=== PATIENT | female | born 1950 | race Hispanic/Latino ===

== ENCOUNTER 2018-02-12 07:05 | Observation (INO) | payer OTHER, MEDICARE ==
[~2018-02-12] VITALS: Ht 149.9 cm; Wt 93.9 kg
[2018-02-12] MEDS ORDERED: FUROSEMIDE 10 MG/ML 2ML VIAL ONE (07:37)
[2018-02-12 07:47] LABS: BASOPHILS % (AUTO) 0.7 % (0.0-5.0); EOSINOPHILS % (AUTO) 2.1 % (0.0-8.0); HEMATOCRIT 31.3 % (36-48); LYMPHOCYTES % (AUTO) 17.4 % (21.0-51.0); MEAN CORPUSCULAR HEMOGLOBIN 30.8 pg (27.0-33.0); MEAN CORPUSCULAR HGB CONC 33.9 g/dL (32.0-36.0); MEAN CORPUSCULAR VOLUME 90.9 fL (79-99); MONOCYTES % (AUTO) 4.6 % (3.0-13.0); NEUTROPHILS % (AUTO) 75.2 % (40.0-77.0); NUCLEATED RED BLOOD CELLS 0.1 % (0.0-0.19); PLATELET COUNT (AUTO) 280 K/uL (130-400); RED BLOOD CELL COUNT(AUTO) 3.44 MIL/uL (4.00-5.50); RED CELL DISTRIBUTION WIDTH 13.3 % (11.0-15.5); WHITE BLOOD COUNT (AUTO) 9.3 K/uL (4.8-10.8)
[2018-02-12 07:52] LABS: CREATININE 1.9 mg/dL (0.5-1.5); POTASSIUM 4.7 mmol/L (3.5-5.1)
[2018-02-12 07:57] LABS: ALBUMIN 2.9 g/dL (3.5-5.0); BILIRUBIN,TOTAL 0.7 mg/dL (0.2-1.0); INR 0.99 (0.85-1.15); PROTHROMBIN TIME 10.4 SEC (9.6-11.6); TOTAL PROTEIN, SERUM 7.3 g/dL (6.0-8.3)
[2018-02-12 09:19] LABS: APPEARANCE,URINE Clear (CLEAR); BILIRUBIN,URINE Negative (NEGATIVE); COLOR,URINE Yellow (YELLOW); GLUCOSE, URINE (UA) TRACE mg/dL (NEGATIVE); KETONES,URINE Negative (NEGATIVE); LEUKOCYTE ESTERASE ,URINE Negative (NEGATIVE); NITRATE,URINE Negative (NEGATIVE); OCCULT BLOOD,URINE Trace (NEGATIVE); PROTEIN,URINE 300 (NEGATIVE); UROBILINOGEN,URINE 0.2 mg/dL (0.2-1.0)
[2018-02-12 09:37] LABS: BACTERIA,URINE Rare /HPF (None Seen); RBC,URINE 0-1 /HPF (0-1); SQUAMOUS EPITHELIAL CELL,UR Rare /HPF (0-2); WBC,URINE None Seen /HPF (0-1)
[2018-02-12] MEDS ORDERED: SODIUM CHLORIDE 0.9% 10 ML VIAL IVP SCH (10:30)
[2018-02-12] MEDS ORDERED: ONDANSETRON HCL 4 MG/2 ML VIAL IVP PRN (10:30)
[2018-02-12] MEDS ORDERED: POTASSIUM CHLORIDE 20 MEQ ERTAB PO PRN (10:30)
[2018-02-12] MEDS ORDERED: POTASSIUM CHLORIDE 10% ELIXIR 20 MEQ/15 ML UDCUP PO PRN (10:30)
[2018-02-12] MEDS ORDERED: MAG HYDROX/AL HYDROX/SIMETH ES 30 ML SUSP UDCUP PO PRN (10:30)
[2018-02-12] MEDS ORDERED: DIPHENHYDRAMINE HCL 25 MG CAPSULE PO PRN (10:30)
[2018-02-12] MEDS ORDERED: LIDOCAINE HCL-MPF 1% 2ML VIAL IJ PRN (10:30)
[2018-02-12] MEDS ORDERED: DEXTROSE 50%-WATER 50 ML DISP.SYRIN IV PRN (10:30)
[2018-02-12] MEDS ORDERED: NITROGLYCERIN 0.4 MG SL TAB SL PRN (10:30)
[2018-02-12] MEDS ORDERED: POTASSIUM CHLORIDE 20MEQ/100ML 100 ML IV PRN (10:30)
[2018-02-12] MEDS ORDERED: GLUCAGON 1MG KIT 1 MG ML IM PRN (10:30)
[2018-02-12] MEDS ORDERED: ACETAMINOPHEN 325 MG TAB PO PRN (10:30)
[2018-02-12 10:38] LABS: THYROID STIMULATING HORMONE 3.16 uIU/mL (0.36-3.74)
[2018-02-12 10:50] VITALS: BP 175/65
[2018-02-12] MEDS ORDERED: PRAV10TA39 PO (11:25)
[2018-02-12] MEDS ORDERED: ASPI-1181 PO (11:25)
[2018-02-12] MEDS ORDERED: AMLO10TA6 PO (11:25)
[2018-02-12] MEDS ORDERED: LOSA25TA16 PO (11:25)
[2018-02-12] MEDS ORDERED: INSLAN SQ ×2 (11:25→16:24)
[2018-02-12] MEDS ORDERED: CARV12.580 PO (11:25)
[2018-02-12] MEDS ORDERED: DOXA2TAB2 PO (11:25)
[2018-02-12] MEDS: INSULIN R PO SSI SQ SCH ×3 (11:30→21:00)
[2018-02-12 11:36] LABS: % IRON SATURATION 15.5 % (22-44)
[2018-02-12 12:25] VITALS: BP 134/64
[2018-02-12 13:40] LABS: CREATINE KINASE, TOTAL 85 U/L (21-232); MYOGLOBIN 84 ng/mL (10-92); TROPONIN I < 0.04 ng/mL (0.00-0.06)
[2018-02-12 16:54] VITALS: BP 151/66
[2018-02-12 19:53] VITALS: BP 161/66
[2018-02-12 20:10] LABS: CREATINE KINASE, TOTAL 74 U/L (21-232); MYOGLOBIN 111 ng/mL (10-92); TROPONIN I < 0.04 ng/mL (0.00-0.06)
[2018-02-12] MEDS ORDERED: **HM**(Pravastatin Sodium 10 MG PO SCH (21:00)
[2018-02-12] MEDS: FUROSEMIDE 10 MG/ML 2ML VIAL IVP SCH (21:36)
[2018-02-12] MEDS: FAMOTIDINE 20MG TAB 20 MG TAB PO SCH (21:36)
[2018-02-12] MEDS: CARVEDILOL 12.5 MG TABLET PO SCH (21:37)
[2018-02-12 23:37] VITALS: BP 142/54
[2018-02-13 04:00] VITALS: BP 144/72
[2018-02-13 04:24] LABS: HEMATOCRIT 28.9 % (36-48); MEAN CORPUSCULAR HEMOGLOBIN 29.7 pg (27.0-33.0); MEAN CORPUSCULAR HGB CONC 32.9 g/dL (32.0-36.0); MEAN CORPUSCULAR VOLUME 90.2 fL (79-99); PLATELET COUNT (AUTO) 244 K/uL (130-400); RED CELL DISTRIBUTION WIDTH 13.6 % (11.0-15.5)
[2018-02-13 04:39] LABS: CREATININE 2.1 mg/dL (0.5-1.5); POTASSIUM 4.4 mmol/L (3.5-5.1)
[2018-02-13] MEDS: INSULIN R PO SSI SQ SCH ×2 (05:48→11:30)
[2018-02-13 07:51] VITALS: BP 150/58
[2018-02-13 08:23] VITALS: BP 150/58
[2018-02-13] MEDS: FAMOTIDINE 20MG TAB 20 MG TAB PO SCH (08:23)
[2018-02-13] MEDS: CARVEDILOL 12.5 MG TABLET PO SCH (08:23)
[2018-02-13] MEDS: FUROSEMIDE 10 MG/ML 2ML VIAL IVP SCH (08:24)
[2018-02-13] MEDS ORDERED: ENOXAPARIN SODIUM 40 MG/0.4 ML SYRINGE SQ SCH (09:00)
[2018-02-13] MEDS ORDERED: LOSARTAN 50 MG TABLET PO SCH (09:00)
[2018-02-13] MEDS ORDERED: AMLODIPINE BESYLATE 5 MG TAB PO SCH (09:00)
[2018-02-13] MEDS ORDERED: ASPIRIN 81 MG EC TAB PO SCH (09:00)
[2018-02-13] MEDS ORDERED: FURO20TA6 PO (11:30)
[2018-02-13] MEDS ORDERED: HYDR-4154 PO (11:30)
[2018-02-13] MEDS ORDERED: ISOS60TA4 PO (11:30)
== END 2018-02-13 14:20 | disposition home or self-care (01) ==
LOC: EDH 07:05 → INTOOBSV 09:55 → EDHIP 09:55 → 2AH 10:29
PROVIDERS: ADMIT Family Medicine; ATTEND Family Medicine
DX: I12.9 Hypertensive chronic kidney disease with stage 1 through stage 4 chronic kidney disease, or unspecified chronic kidney disease (principal); N18.4 Chronic kidney disease, stage 4 (severe); E11.22 Type 2 diabetes mellitus with diabetic chronic kidney disease; E66.9 Obesity, unspecified; E78.5 Hyperlipidemia, unspecified; E11.39 Type 2 diabetes mellitus with other diabetic ophthalmic complication; H42 Glaucoma in diseases classified elsewhere; D64.9 Anemia, unspecified; E87.70 Fluid overload, unspecified; I44.7 Left bundle-branch block, unspecified; J81.1 Chronic pulmonary edema; Z79.4 Long term (current) use of insulin; Z79.82 Long term (current) use of aspirin; Z79.899 Other long term (current) drug therapy; Z82.49 Family history of ischemic heart disease and other diseases of the circulatory system; Z90.710 Acquired absence of both cervix and uterus; Z90.49 Acquired absence of other specified parts of digestive tract
CPT/HCPCS: 36415; 71045; 80048; 80053; 80061; 81001; 82550; 82607; 82746; 82948; 83036; 83540; 83550; 83690; 83874; 83880; 84443; 84484; 85025; 85027; 85610; 85730; 87804; 93005; 93306; 96372; 96374; 96376; G0378; J1650; J1940

== ENCOUNTER 2018-05-03 02:23 | Inpatient (IN) | payer OTHER, MEDICARE ==
[~2018-05-03] VITALS: Ht 124.5 cm; Wt 90.3 kg
[~2018-05-03 02:23] MED LIST: AMLO10TA7 PO; ASPI-1181 PO; CARV12.580 PO; DOXA2TAB2 PO; FURO20TA6 PO; HYDR-4154 PO; INSLAN SQ; ISOS60TA4 PO
[2018-05-03 03:08] LABS: ABG BASE EXCESS -12.2 mmol/L (-2.0-3.0); ABG OXYGEN SATURATION 86.2 % (95.0-99.0); ABG PCO2 39 mmHg (32-45)
[2018-05-03] MEDS ORDERED: ALBUTEROL SULFATE 0.083% 2.5 MG/3 ML INH IH ONE (03:12)
[2018-05-03 03:17] LABS: BASOPHILS % (AUTO) 0.4 % (0.0-5.0); EOSINOPHILS % (AUTO) 3.2 % (0.0-8.0); HEMATOCRIT 30.1 % (36-48); LYMPHOCYTES % (AUTO) 16.1 % (21.0-51.0); MEAN CORPUSCULAR HEMOGLOBIN 28.6 pg (27.0-33.0); MEAN CORPUSCULAR HGB CONC 32.8 g/dL (32.0-36.0); MEAN CORPUSCULAR VOLUME 87.2 fL (79-99); MONOCYTES % (AUTO) 5.5 % (3.0-13.0); NEUTROPHILS % (AUTO) 74.8 % (40.0-77.0); PLATELET COUNT (AUTO) 258 K/uL (130-400); RED BLOOD CELL COUNT(AUTO) 3.45 MIL/uL (4.00-5.50); RED CELL DISTRIBUTION WIDTH 14.4 % (11.0-15.5); WHITE BLOOD COUNT (AUTO) 9.3 K/uL (4.8-10.8)
[2018-05-03 03:25] LABS: CREATININE 2.3 mg/dL (0.5-1.5); POTASSIUM 4.4 mmol/L (3.5-5.1)
[2018-05-03 03:30] LABS: ALBUMIN 3.2 g/dL (3.5-5.0); BILIRUBIN,TOTAL 0.5 mg/dL (0.2-1.0); TOTAL PROTEIN, SERUM 7.7 g/dL (6.0-8.3)
[2018-05-03 03:39] LABS: B-TYPE NATRIURETIC PEPTIDE 351 pg/mL (0-100)
[2018-05-03] MEDS ORDERED: FUROSEMIDE 10 MG/ML 2ML VIAL ONE (03:42)
[2018-05-03] MEDS ORDERED: NITROGLYCERIN 1GM/1 INCH PACKET TD ONE (03:42)
[2018-05-03] MEDS ORDERED: IPRATROPIUM/ALBUTEROL SULFATE 3 ML SOLUTION IH PRN (06:15)
[2018-05-03] MEDS ORDERED: GLUCAGON 1MG KIT 1 MG ML IM PRN (06:15)
[2018-05-03] MEDS ORDERED: HYDRALAZINE HCL 20 MG/ML VIAL IV PRN (06:15)
[2018-05-03] MEDS ORDERED: DEXTROSE 50%-WATER 50 ML DISP.SYRIN IV PRN (06:15)
[2018-05-03 06:35] LABS: ABG BASE EXCESS -10.3 mmol/L (-2.0-3.0); ABG HCO3 15.3 mmol/L (21.0-28.0); ABG OXYGEN SATURATION 98.3 % (95.0-99.0); ABG PCO2 33 mmHg (32-45)
[2018-05-03] MEDS: INSULIN R PO SS1 SQ SCH ×4 (07:30→21:14)
[2018-05-03] MEDS ORDERED: SODIUM BICARB 8.4% 50ML SYRING 150 MEQ in DEXTROSE 5%-WATER 1,000 ML IVP SCH (08:30)
[2018-05-03] MEDS ORDERED: ENOXAPARIN SODIUM 40 MG/0.4 ML SYRINGE SQ ONE (08:47)
[2018-05-03] MEDS ORDERED: FUROSEMIDE 10 MG/ML 4ML VIAL ONE (08:47)
[2018-05-03] MEDS ORDERED: FUROSEMIDE 10 MG/ML 4ML VIAL IVP SCH (09:00)
[2018-05-03] MEDS: FUROSEMIDE 10 MG/ML 4ML VIAL IVP SCH ×2 (09:00→21:07)
[2018-05-03] MEDS: ENOXAPARIN SODIUM 40 MG/0.4 ML SYRINGE SQ SCH (09:00)
[2018-05-03] MEDS: PANTOPRAZOLE SODIUM 40 MG TABLET.DR PO SCH (09:00)
[2018-05-03] MEDS ORDERED: IPRATROPIUM/ALBUTEROL SULFATE 3 ML SOLUTION IH SCH (12:00)
--- NOTE | 2018-05-03 12:13 | NUR ---
RENA Patricia met with pt who states she lives with her daughter Nelly Chino [phone]. Pt reports daughter assists with ADLS as needed, pt has no DME or in home care services. Pt uses [facility] or [facility], denies dc needs. Plan is home at me Addendum: 05/03/18 at 1215 by ABRAHAM MOORE SS Amended: Links added.
[2018-05-03] MEDS: HYDRALAZINE HCL 25 MG TABLET PO SCH ×2 (14:00→21:08)
[2018-05-03] MEDS: SODIUM BICARBONATE 650 MG TAB PO SCH ×2 (14:00→21:07)
[2018-05-03 16:57] VITALS: BP 165/50
[2018-05-03] MEDS ORDERED: PRAV10TA39 PO (17:28)
[2018-05-03 19:45] VITALS: BP 149/57
--- NOTE | 2018-05-03 20:00 | NUR ---
ASSESSMENT AWAKE. DENIES PAIN. ASSESSMENT COMPLETED SEE FLOW SHEET. ENCOURAGED TO CALL FOR WANTS OR NEEDS. Addendum: 05/03/18 at 2032 by RADHA HERRERA RN RN Amended: Links added.
[2018-05-03] MEDS: CARVEDILOL 12.5 MG TABLET PO SCH (21:08)
[2018-05-03 23:26] VITALS: BP 164/60
[2018-05-04 03:30] VITALS: BP 159/53
[2018-05-04] MEDS: INSULIN R PO SS1 SQ SCH ×4 (05:36→21:02)
[2018-05-04 07:31] VITALS: BP 153/63
--- NOTE | 2018-05-04 08:27 | NUR ---
NO ACUTE DISTRESS- EATING BREAKFAST AT SIDE OF BED. OFFERS NO COMPLAINTS
[2018-05-04] MEDS: CARVEDILOL 12.5 MG TABLET PO SCH ×2 (09:54→21:00)
[2018-05-04] MEDS: PANTOPRAZOLE SODIUM 40 MG TABLET.DR PO SCH (09:54)
[2018-05-04] MEDS: FUROSEMIDE 10 MG/ML 4ML VIAL IVP SCH ×2 (09:54→21:04)
[2018-05-04] MEDS: HYDRALAZINE HCL 25 MG TABLET PO SCH ×3 (09:55→21:00)
[2018-05-04] MEDS: AMLODIPINE BESYLATE 5 MG TAB PO SCH (09:55)
[2018-05-04] MEDS: SODIUM BICARBONATE 650 MG TAB PO SCH ×3 (09:56→21:00)
[2018-05-04] MEDS: ENOXAPARIN SODIUM 40 MG/0.4 ML SYRINGE SQ SCH (09:57)
[2018-05-04 11:06] VITALS: BP 149/59
[2018-05-04] MEDS: ASPIRIN 81 MG EC TAB PO SCH (13:09)
[2018-05-04 15:41] VITALS: BP 150/60
[2018-05-04 19:56] VITALS: BP 145/61
[2018-05-04] MEDS: DOXAZOSIN MESYLATE 2 MG TABLET PO SCH (21:00)
[2018-05-04] MEDS: INSULIN GLARGINE 100 UNITS/ML 10 ML VIAL SQ SCH (21:03)
[2018-05-04 23:39] VITALS: BP 142/50
[2018-05-05 03:43] VITALS: BP 145/50
--- NOTE | 2018-05-05 05:01 | NUR ---
PT IS IN BED, STABLE. STATES NO PAIN OR SOB. NO DISTRESS NOTED. ABLE TO STATE CONCERNS. [id number]. CONTINUES ON IV LASIX.
[2018-05-05 05:43] LABS: BASOPHILS % (AUTO) 0.5 % (0.0-5.0); EOSINOPHILS % (AUTO) 3.2 % (0.0-8.0); HEMATOCRIT 28.9 % (36-48); LYMPHOCYTES % (AUTO) 20.3 % (21.0-51.0); MEAN CORPUSCULAR HEMOGLOBIN 28.6 pg (27.0-33.0); MEAN CORPUSCULAR HGB CONC 33.3 g/dL (32.0-36.0); MEAN CORPUSCULAR VOLUME 85.8 fL (79-99); MONOCYTES % (AUTO) 8.4 % (3.0-13.0); NEUTROPHILS % (AUTO) 67.6 % (40.0-77.0); PLATELET COUNT (AUTO) 256 K/uL (130-400); RED BLOOD CELL COUNT(AUTO) 3.37 MIL/uL (4.00-5.50); RED CELL DISTRIBUTION WIDTH 14.4 % (11.0-15.5); WHITE BLOOD COUNT (AUTO) 7.2 K/uL (4.8-10.8)
[2018-05-05 05:50] LABS: CREATININE 2.6 mg/dL (0.5-1.5); POTASSIUM 3.7 mmol/L (3.5-5.1)
[2018-05-05] MEDS: INSULIN R PO SS1 SQ SCH ×4 (06:28→21:23)
[2018-05-05 07:28] VITALS: BP 158/74
[2018-05-05] MEDS: PANTOPRAZOLE SODIUM 40 MG TABLET.DR PO SCH (10:42)
[2018-05-05] MEDS: SODIUM BICARBONATE 650 MG TAB PO SCH ×3 (10:42→21:11)
[2018-05-05] MEDS: FUROSEMIDE 10 MG/ML 4ML VIAL IVP SCH (10:42)
[2018-05-05] MEDS: ASPIRIN 81 MG EC TAB PO SCH (10:42)
[2018-05-05] MEDS: AMLODIPINE BESYLATE 5 MG TAB PO SCH (10:42)
[2018-05-05] MEDS: HYDRALAZINE HCL 25 MG TABLET PO SCH ×3 (10:43→21:10)
[2018-05-05] MEDS: ISOSORBIDE MONO 60 MG TAB.SR PO SCH (10:43)
[2018-05-05] MEDS: CARVEDILOL 12.5 MG TABLET PO SCH ×2 (10:44→21:10)
[2018-05-05] MEDS: ENOXAPARIN SODIUM 40 MG/0.4 ML SYRINGE SQ SCH (10:49)
[2018-05-05 11:11] VITALS: BP 167/56
--- NOTE | 2018-05-05 15:40 | NUR ---
Report given to Emma. Hayden updated and sent up stairs.
[2018-05-05 15:42] VITALS: BP 152/62
[2018-05-05 16:00] VITALS: BP 150/59
--- NOTE | 2018-05-05 16:00 | NUR ---
REPORT TAKEN AND PT. RECEIVED IN ROOM 322, AWAKE, ALERT, NO C/O, ROOM AIR AND NO RESP. DISTRESS NOTED.SALINE LOCK IN PLACE TO LT. HAND 20G. WELL SECURED. OFF O2 AND BREATHING EASY. DENIES ANY DISCOMFORT.
[2018-05-05] MEDS: FUROSEMIDE 40 MG TABLET PO SCH (17:00)
--- NOTE | 2018-05-05 18:00 | NUR ---
RESTING, LOOKS COMFORTABLE.NO RESP. DISTRESS. AMBULATORY IN ROOM.
[2018-05-05 19:00] VITALS: BP 155/62
[2018-05-05] MEDS: DOXAZOSIN MESYLATE 2 MG TABLET PO SCH (21:17)
[2018-05-05] MEDS: INSULIN GLARGINE 100 UNITS/ML 10 ML VIAL SQ SCH (21:23)
[2018-05-06] VITALS: BP 122/57
[2018-05-06 04:00] VITALS: BP 137/52
[2018-05-06] MEDS: INSULIN R PO SS1 SQ SCH ×3 (07:02→16:30)
[2018-05-06 07:59] VITALS: BP 176/64
[2018-05-06] MEDS: ENOXAPARIN SODIUM 40 MG/0.4 ML SYRINGE SQ SCH (09:25)
[2018-05-06] MEDS: ASPIRIN 81 MG EC TAB PO SCH (09:26)
[2018-05-06] MEDS: PANTOPRAZOLE SODIUM 40 MG TABLET.DR PO SCH (09:28)
[2018-05-06] MEDS: CARVEDILOL 12.5 MG TABLET PO SCH (09:29)
[2018-05-06] MEDS: SODIUM BICARBONATE 650 MG TAB PO SCH ×2 (09:29→14:00)
[2018-05-06] MEDS: HYDRALAZINE HCL 25 MG TABLET PO SCH ×2 (09:29→14:00)
[2018-05-06] MEDS: ISOSORBIDE MONO 60 MG TAB.SR PO SCH (09:29)
[2018-05-06] MEDS: FUROSEMIDE 40 MG TABLET PO SCH ×2 (09:30→17:08)
[2018-05-06] MEDS: AMLODIPINE BESYLATE 5 MG TAB PO SCH (09:30)
[2018-05-06 11:31] VITALS: BP 141/64
[2018-05-06 15:53] VITALS: BP 142/54
--- NOTE | 2018-05-06 17:22 | NUR ---
PT D/C HOME PT D/C HOME SAFELY, D/C INSTRUCTION GIVEN, CHF EDUCATION GIVEN, WEIGHT MONITORING FORM PRINTED FOR PT, EDUCATION GIVEN TO PER CHF PROTOCOL, PT TO FOLLOW UP WITH HIS PCP IN 1-3 DAYS, APPOINTMENT FOR SDET MADE FOR PT, PT VERBALIZED UNDERSTANDING TO D/C INSTRUCTION, PT STABLE AND OKAY TO D/C, IV OUT, NO COMPLICATION NOTED, PT TRANSPORTED DOWN IN W/C, TRANSPORTATION TO BE PROVIDED BY EX- ACCORDING TO PT.
== END 2018-05-06 17:20 | disposition home or self-care (01) | DRG 682 ==
LOC: EDH 02:23 → EDHIP 04:25 → 2BH 17:16 → 3DH 05-05 16:09
PROVIDERS: ADMIT Internal Medicine Critical Care Medicine; ATTEND Internal Medicine Critical Care Medicine
DX: N17.9 Acute kidney failure, unspecified (principal); J96.01 Acute respiratory failure with hypoxia; J81.1 Chronic pulmonary edema; E87.2 Acidosis; Z68.43 Body mass index [BMI] 50.0-59.9, adult; I50.32 Chronic diastolic (congestive) heart failure; I13.0 Hypertensive heart and chronic kidney disease with heart failure and stage 1 through stage 4 chronic kidney disease, or unspecified chronic kidney disease; J91.8 Pleural effusion in other conditions classified elsewhere; N18.4 Chronic kidney disease, stage 4 (severe); E87.70 Fluid overload, unspecified; E66.01 Morbid (severe) obesity due to excess calories; E11.22 Type 2 diabetes mellitus with diabetic chronic kidney disease; G47.33 Obstructive sleep apnea (adult) (pediatric); I16.0 Hypertensive urgency; E78.5 Hyperlipidemia, unspecified
CPT/HCPCS: 36415; 36600; 71045; 80048; 80053; 82550; 82803; 82948; 83605; 83880; 84484; 85025; 93005; 94640; 94660; 94664; 99291; G0378; J1650; J1815; J1940; J3490; J7070

== ENCOUNTER 2018-09-14 11:40 | Emergency (ER) | payer MEDICARE, OTHER ==
[~2018-09-14 11:40] MED LIST changes: +PRAV10TA39 PO
== END 2018-09-14 16:12 | disposition home or self-care (01) ==
LOC: EDH 11:40
DX: S90.31XA Contusion of right foot, initial encounter (principal); S60.222A Contusion of left hand, initial encounter; S29.9XXA Unspecified injury of thorax, initial encounter; I10 Essential (primary) hypertension; E11.9 Type 2 diabetes mellitus without complications; V49.59XA Passenger injured in collision with other motor vehicles in traffic accident, initial encounter; Y93.89 Activity, other specified; Y92.89 Other specified places as the place of occurrence of the external cause; Y99.8 Other external cause status
CPT/HCPCS: 71045; 73130; 73630; 84484; 93005; 99291; G0390

== ENCOUNTER → 2018-11-21 | Outpatient (CLI) | payer OTHER | END | disposition home or self-care (01) | LOC: OIH 09:44 | PROVIDERS: ATTEND Family Medicine | DX: J90 Pleural effusion, not elsewhere classified (principal); I13.0 Hypertensive heart and chronic kidney disease with heart failure and stage 1 through stage 4 chronic kidney disease, or unspecified chronic kidney disease; I50.9 Heart failure, unspecified; N18.4 Chronic kidney disease, stage 4 (severe); E11.22 Type 2 diabetes mellitus with diabetic chronic kidney disease | CPT/HCPCS: 71046 ==

== ENCOUNTER 2018-12-17 22:49 | Inpatient (IN) | payer OTHER ==
[~2018-12-17] VITALS: Ht 149.9 cm; Wt 88.0 kg
[2018-12-17 23:42] LABS: BASOPHILS % (AUTO) 0.4 % (0.0-5.0); EOSINOPHILS % (AUTO) 1.1 % (0.0-8.0); HEMATOCRIT 28.6 % (36-48); LYMPHOCYTES % (AUTO) 16.8 % (21.0-51.0); MEAN CORPUSCULAR HEMOGLOBIN 27.8 pg (27.0-33.0); MEAN CORPUSCULAR HGB CONC 32.1 g/dL (32.0-36.0); MEAN CORPUSCULAR VOLUME 86.5 fL (79-99); MONOCYTES % (AUTO) 8.1 % (3.0-13.0); NEUTROPHILS % (AUTO) 73.6 % (40.0-77.0); NUCLEATED RED BLOOD CELLS 0.4 % (0.0-0.19); PLATELET COUNT (AUTO) 252 K/uL (130-400); RED BLOOD CELL COUNT(AUTO) 3.31 MIL/uL (4.00-5.50); WHITE BLOOD COUNT (AUTO) 7.8 K/uL (4.8-10.8)
[2018-12-17 23:52] LABS: APPEARANCE,URINE Clear (CLEAR); BILIRUBIN,URINE Negative (NEGATIVE); COLOR,URINE Yellow (YELLOW); GLUCOSE, URINE (UA) Negative (NEGATIVE); KETONES,URINE Negative (NEGATIVE); LEUKOCYTE ESTERASE ,URINE Trace (NEGATIVE); NITRATE,URINE Negative (NEGATIVE); OCCULT BLOOD,URINE Negative (NEGATIVE); PROTEIN,URINE POS 2+ mg/dL (NEGATIVE); UROBILINOGEN,URINE 0.2 mg/dL (0.2-1.0)
[2018-12-17 23:54] LABS: ALBUMIN 3.3 g/dL (3.5-5.0); BILIRUBIN,DIRECT 0.1 mg/dL (0.0-0.3); BILIRUBIN,TOTAL 0.4 mg/dL (0.2-1.0); POTASSIUM 4.9 mmol/L (3.5-5.1); TOTAL PROTEIN, SERUM 7.7 g/dL (6.0-8.3)
[2018-12-17 23:56] LABS: B-TYPE NATRIURETIC PEPTIDE 623 pg/mL (0-100)
[2018-12-18 00:01] LABS: BACTERIA,URINE Moderate /HPF (None Seen); RBC,URINE 0-1 /HPF (0-1)
[2018-12-18] MEDS: SODIUM CHLORIDE 0.9% 1000ML 1,000 ML IV SCH ×2 (01:45→20:57)
[2018-12-18] MEDS ORDERED: SODIUM CHLORIDE 0.9% 1000ML 1,000 ML IV ONE (01:59)
[2018-12-18 02:20] VITALS: BP 133/55
[2018-12-18] MEDS ORDERED: FURO20TA4 PO (02:57)
[2018-12-18] MEDS ORDERED: ISOS60TA4 PO (02:59)
[2018-12-18] MEDS ORDERED: FERR325T22 PO (03:02)
[2018-12-18] MEDS ORDERED: FOLI1 PO (03:02)
[2018-12-18 04:07] VITALS: BP 142/62
[2018-12-18 06:10] LABS: HEMATOCRIT 28.1 % (36-48); MEAN CORPUSCULAR HEMOGLOBIN 28.3 pg (27.0-33.0); MEAN CORPUSCULAR HGB CONC 32.5 g/dL (32.0-36.0); MEAN CORPUSCULAR VOLUME 86.8 fL (79-99); NUCLEATED RED BLOOD CELLS 0.8 % (0.0-0.19); PLATELET COUNT (AUTO) 260 K/uL (130-400); RED BLOOD CELL COUNT(AUTO) 3.23 MIL/uL (4.00-5.50); RED CELL DISTRIBUTION WIDTH 18.2 % (11.0-15.5); WHITE BLOOD COUNT (AUTO) 7.1 K/uL (4.8-10.8)
[2018-12-18 06:25] LABS: ALBUMIN 3.2 g/dL (3.5-5.0); BILIRUBIN,TOTAL 0.4 mg/dL (0.2-1.0); POTASSIUM 4.8 mmol/L (3.5-5.1); TOTAL PROTEIN, SERUM 7.5 g/dL (6.0-8.3)
[2018-12-18] MEDS: PANTOPRAZOLE SODIUM 40 MG TABLET.DR PO SCH (09:57)
[2018-12-18 11:00] VITALS: BP 118/48
[2018-12-18] MEDS ORDERED: FLU VACC QS2019-20 36MOS UP/PF 60 MCG/0.5 ML ML IM SCH (12:00)
[2018-12-18 16:00] VITALS: BP 148/47
[2018-12-18 20:00] VITALS: BP 139/51
--- NOTE | 2018-12-18 20:54 | NUR ---
ASSESS SHIFT ASSESSMENT DONE, PLEASE REFER TO CHART. NEW IV BAG HUNG. KEPT RESTED AND COMFORTABLE. CALL LIGHT WITHIN REACH. WILL MONITOR PT. Addendum: 12/19/18 at 0119 by DAVID SWARTZ RN RN Amended: Links added.
[2018-12-18 23:46] VITALS: BP 135/51
--- NOTE | 2018-12-19 02:00 | NUR ---
ROUNDS PT RESTING WELL WITH RESPIRATIONS EVEN AND UNLABORED. NO DISTRESS NOTED. KEPT RESTED AND COMFORTABLE. CALL LIGHT WITHIN REACH. WILL MONITOR PT.
[2018-12-19 04:00] VITALS: BP 142/56
--- NOTE | 2018-12-19 05:12 | NUR ---
ROUNDS PCP ASSISTED PT TO THE RESTROOM THEN BACK TO BED. DENIES ANY CONCERNS AT THIS TIME. KEPT RESTED. CALL LIGHT WITHIN REACH. FAMILY AT BEDSIDE. FOR MORE CARE.
[2018-12-19] MEDS: SODIUM CHLORIDE 0.9% 1000ML 1,000 ML IV SCH ×2 (05:21→15:12)
[2018-12-19 08:00] VITALS: BP 143/50
[2018-12-19] MEDS: PANTOPRAZOLE SODIUM 40 MG TABLET.DR PO SCH (09:44)
[2018-12-19 11:55] VITALS: BP 142/58
--- NOTE | 2018-12-19 11:58 | NUR ---
NEPHROLOGY CONSULT PAGED DR. DUMONT PER DR. FLOWERS. MESSAGE LEFT WITH ANSWERING SERVICE.
--- NOTE | 2018-12-19 13:32 | NUR ---
INITIAL AT 1120 MET W PT, ALONE, [place], LIVES W SPOUSE IDALIA CLOUD; SON AND DAUGHTER IN LAW HELP WITH [employer] [facility] NUMBERS CHECKED, UPDATED STATES USES A WKR AND HAS A SHOWER CHAIR AND HAS A RAMP. NO PROVIDER SERVICES, HAS BEEN TOLD HER KIDNIES ARE BAD AND MIGHT NEED TO START HD. [facility] WILL BE READY WHEN THEY ASK HER TO START. LIVE IN [place]. [facility] MIGHT START ON THIS ADMIT Addendum: 12/19/18 at 1335 by PEMA ABAD RN CM Amended: Links added.
[2018-12-19 16:00] VITALS: BP 152/48
--- NOTE | 2018-12-19 16:21 | NUR ---
SPOKE TO DR. DUMONT REGARDING CONSULT, STATED WILL SEE PATIENT LATER TONIGHT.
[2018-12-19] MEDS: INSULIN HUMULIN R 100 UNIT/ML 3ML SQ SCH ×2 (16:30→20:24)
[2018-12-19] MEDS ORDERED: GLUCAGON 1MG KIT 1 MG ML IM PRN (16:30)
[2018-12-19] MEDS ORDERED: DEXTROSE 50%-WATER 50 ML DISP.SYRIN IV PRN (16:30)
[2018-12-19 19:00] VITALS: BP 158/65
--- NOTE | 2018-12-19 19:42 | NUR ---
CONSULT DR DUMONT IN TO SEE PT. NEW ORDERS GIVEN, PLEASE REFER TO CPOE.
[2018-12-19] MEDS ORDERED: ACETAMINOPHEN EXTRA STRENGTH 500 MG TABLET PO PRN (20:00)
[2018-12-19] MEDS: SYRING IV SCH (20:13)
[2018-12-19] MEDS: 1/2 NORMAL SALINE IV SCH (20:13)
[2018-12-19] MEDS: SODIUM BICARB 8.4% IV SCH (20:13)
--- NOTE | 2018-12-19 20:13 | NUR ---
MEDS SHIFT ASSESSMENT DONE, PLEASE REFER TO CHART. NEW ORDERED MEDS ADMINISTERED, TOLERATED WELL. INSTRUCTED SPOUSE TO GET HOME MED OF PRAVASTATIN SINCE RX DOES NOT CARRY IT. PT'S SPOUSE VERBALIZES UNDERSTANDING. CHANGED IVF OF NS TO 1/2 NS + 100MEQ NA BICARB AND MAINTAINED REGULATION AT 100CC/HR. KEPT RESTED AND COMFORTABLE CALL LIGHT WITHIN REACH. WILL MONITOR PT.
[2018-12-19] MEDS: HYDRALAZINE HCL 25 MG TABLET PO SCH (20:14)
[2018-12-19] MEDS: CARVEDILOL 12.5 MG TABLET PO SCH (20:14)
[2018-12-19] MEDS: **HM**Pravastatin Sodium 10 MG PO SCH (20:24)
[2018-12-19] MEDS: CEFTRIAXONE SODIUM 1 GM IVP SCH (20:43)
[2018-12-19] MEDS ORDERED: INSULIN GLARGINE 100 UNITS/ML 10 ML VIAL SQ SCH (21:00)
[2018-12-20] VITALS (7 sets, daily range): BP systolic 110–145; BP diastolic 51–67
--- NOTE | 2018-12-20 02:00 | NUR ---
ROUNDS PT FAIRLY ASLEEP WITH RESPIRATIONS EVEN AND UNLABORED. NO NOTED DISTRESS. KEPT UNDISTURBED FOR NOW. WILL MONITOR PT. CALL LIGHT WITHIN REACH.
--- NOTE | 2018-12-20 04:40 | NUR ---
AWAKE PT AWAKENED TO USE THE RESTROOM. ASSISTED PT. WALKED TO THE RESTROOM THEN BACK TO BED WITH WALKER, MINIMUM ASSIST. CONTINUED IVF. POSITIONED COMFORTABLY IN BED. FOR MORE CARE.
--- NOTE | 2018-12-20 05:53 | NUR ---
BLOOD SUGAR PT'S BLOOD SUGAR=41. PT IS AAOX3, NO COMPLAINTS VERBALIZED. NO DISTRESS NOTED. PROVIDED WITH SNACK TO EAT AND JUICE TO DRINK. WILL RE-ASSESS PT.
[2018-12-20 06:12] LABS: BASOPHILS % (AUTO) 0.2 % (0.0-5.0); EOSINOPHILS % (AUTO) 2.3 % (0.0-8.0); HEMATOCRIT 25.5 % (36-48); LYMPHOCYTES % (AUTO) 15.2 % (21.0-51.0); MEAN CORPUSCULAR HEMOGLOBIN 28.8 pg (27.0-33.0); MEAN CORPUSCULAR HGB CONC 33.4 g/dL (32.0-36.0); MEAN CORPUSCULAR VOLUME 86.3 fL (79-99); MONOCYTES % (AUTO) 9.5 % (3.0-13.0); NEUTROPHILS % (AUTO) 72.8 % (40.0-77.0); NUCLEATED RED BLOOD CELLS 0.8 % (0.0-0.19); PLATELET COUNT (AUTO) 209 K/uL (130-400); RED BLOOD CELL COUNT(AUTO) 2.95 MIL/uL (4.00-5.50); RED CELL DISTRIBUTION WIDTH 18.3 % (11.0-15.5)
[2018-12-20] MEDS: INSULIN HUMULIN R 100 UNIT/ML 3ML SQ SCH ×4 (06:17→20:21)
[2018-12-20] MEDS: SODIUM BICARB 8.4% IV SCH ×3 (06:18→23:35)
[2018-12-20] MEDS: SYRING IV SCH ×3 (06:18→23:35)
[2018-12-20] MEDS: 1/2 NORMAL SALINE IV SCH ×3 (06:18→23:35)
[2018-12-20 06:36] LABS: ALBUMIN 2.8 g/dL (3.5-5.0); BILIRUBIN,TOTAL 0.5 mg/dL (0.2-1.0); CREATININE 5.2 mg/dL (0.5-1.5); PHOSPHORUS 7.4 mg/dL (2.5-4.9); POTASSIUM 3.6 mmol/L (3.5-5.1); TOTAL PROTEIN, SERUM 6.5 g/dL (6.0-8.3)
[2018-12-20] MEDS ORDERED: FUROSEMIDE 20 MG TABLET PO SCH (08:00)
[2018-12-20] MEDS: DOXAZOSIN MESYLATE 2 MG TABLET PO SCH (09:31)
[2018-12-20] MEDS: ASPIRIN 81 MG EC TAB PO SCH (09:31)
[2018-12-20] MEDS: PANTOPRAZOLE SODIUM 40 MG TABLET.DR PO SCH (09:32)
[2018-12-20] MEDS: HYDRALAZINE HCL 25 MG TABLET PO SCH ×3 (09:32→19:59)
[2018-12-20] MEDS: CARVEDILOL 12.5 MG TABLET PO SCH ×2 (09:32→19:57)
[2018-12-20] MEDS: FOLIC ACID 1 MG TABLET PO SCH (09:32)
[2018-12-20] MEDS: ISOSORBIDE MONO 60 MG TAB.SR PO SCH (09:32)
[2018-12-20] MEDS: AMLODIPINE BESYLATE 5 MG TAB PO SCH (09:33)
[2018-12-20] MEDS: FERROUS SULFATE 325 MG TABLET.DR PO SCH (09:35)
[2018-12-20] MEDS: **HM**Pravastatin Sodium 10 MG PO SCH (19:57)
[2018-12-20] MEDS: CEFTRIAXONE SODIUM 1 GM IVP SCH (19:57)
--- NOTE | 2018-12-20 19:57 | NUR ---
MEDS SHIFT ASSESSMENT DONE, PLEASE REFER TO CHART. PIV INFILTRATED, DISCONTINUED WITH CATHETER INTACT. WARM PACKS APPLIED TO SITE. RE-INSERTED PIV G20 TO RT HAND, TOLERATED WELL. DUE MEDS ADMINISTERED, TOLERATED WELL. PT ASSISTED TO THE RESTROOM THEN BACK TO BED. POSITIONED COMFORTABLY. CALL LIGHT WITHIN REACH. WILL MONITOR PT. SPOUSE AT BEDSIDE. Addendum: 12/21/18 at 0201 by DAVID SWARTZ RN RN Amended: Links added.
--- NOTE | 2018-12-20 22:00 | NUR ---
ROUNDS PT RESTIGN WELL, FAIRLY ASLEEP. NO DISTRESS NOTED. KEPT UNDISTURBED FOR NOW. WILL MONITOR PT. CALL LIGHT WITHIN REACH.
[2018-12-21] VITALS: BP 136/61
--- NOTE | 2018-12-21 01:45 | NUR ---
ASSIST PT AWAKENS AND NEEDING THE RESTROOM. PCP ASSISTED PT TO THE RESTROOM THEN BACK TO BED. STILL WITH SOB WITH EXERTION. RE-POSITIONED COMFORTABLY IN BED. ENCOURAGED TO GO BACK TO SLEEP. WILL MONITOR PT.
[2018-12-21 04:00] VITALS: BP 154/65
[2018-12-21] MEDS: SYRING IV SCH ×2 (04:05→21:27)
[2018-12-21] MEDS: 1/2 NORMAL SALINE IV SCH ×2 (04:05→21:27)
[2018-12-21] MEDS: SODIUM BICARB 8.4% IV SCH ×2 (04:05→21:27)
--- NOTE | 2018-12-21 05:00 | NUR ---
ROUNDS PT RESTING WELL, NO CONCERNS VERBALIZED. NO DISTRESS NOTED. KEPT COMFORTABLE IN BED. FOR MORE CARE.
[2018-12-21 05:47] LABS: ALBUMIN 2.7 g/dL (3.5-5.0); CREATININE 4.5 mg/dL (0.5-1.5); PHOSPHORUS 6.1 mg/dL (2.5-4.9); POTASSIUM 3.3 mmol/L (3.5-5.1)
[2018-12-21] MEDS: INSULIN HUMULIN R 100 UNIT/ML 3ML SQ SCH ×3 (06:34→20:46)
[2018-12-21 08:00] VITALS: BP 152/67
[2018-12-21] MEDS: ASPIRIN 81 MG EC TAB PO SCH (09:59)
[2018-12-21] MEDS: FOLIC ACID 1 MG TABLET PO SCH (10:00)
[2018-12-21] MEDS: ISOSORBIDE MONO 60 MG TAB.SR PO SCH (10:00)
[2018-12-21] MEDS: DOXAZOSIN MESYLATE 2 MG TABLET PO SCH (10:00)
[2018-12-21] MEDS: HYDRALAZINE HCL 25 MG TABLET PO SCH ×3 (10:00→21:07)
[2018-12-21] MEDS: CARVEDILOL 12.5 MG TABLET PO SCH ×2 (10:01→21:09)
[2018-12-21] MEDS: PANTOPRAZOLE SODIUM 40 MG TABLET.DR PO SCH (10:03)
[2018-12-21] MEDS: AMLODIPINE BESYLATE 5 MG TAB PO SCH (10:03)
[2018-12-21] MEDS: FERROUS SULFATE 325 MG TABLET.DR PO SCH (10:06)
[2018-12-21 11:50] VITALS: BP 148/65
[2018-12-21 16:00] VITALS: BP 151/65
[2018-12-21 19:32] VITALS: BP 146/57
[2018-12-21] MEDS: **HM**Pravastatin Sodium 10 MG PO SCH (20:52)
[2018-12-21] MEDS: CEFTRIAXONE SODIUM 1 GM IVP SCH (21:06)
[2018-12-22] VITALS: BP 140/41
[2018-12-22] MEDS: SODIUM BICARB 8.4% IV SCH ×2 (03:00→14:00)
[2018-12-22] MEDS: SYRING IV SCH ×2 (03:00→14:00)
[2018-12-22] MEDS: 1/2 NORMAL SALINE IV SCH ×2 (03:00→14:00)
[2018-12-22 03:30] VITALS: BP 144/57
[2018-12-22 04:31] LABS: BASOPHILS % (AUTO) 0.3 % (0.0-5.0); EOSINOPHILS % (AUTO) 2.7 % (0.0-8.0); HEMATOCRIT 24.3 % (36-48); LYMPHOCYTES % (AUTO) 15.8 % (21.0-51.0); MEAN CORPUSCULAR HEMOGLOBIN 27.8 pg (27.0-33.0); MEAN CORPUSCULAR HGB CONC 33.2 g/dL (32.0-36.0); MEAN CORPUSCULAR VOLUME 83.8 fL (79-99); MONOCYTES % (AUTO) 9.8 % (3.0-13.0); NEUTROPHILS % (AUTO) 71.4 % (40.0-77.0); NUCLEATED RED BLOOD CELLS 0.2 % (0.0-0.19); PLATELET COUNT (AUTO) 205 K/uL (130-400); RED CELL DISTRIBUTION WIDTH 18.5 % (11.0-15.5)
[2018-12-22 04:48] LABS: ALBUMIN 2.6 g/dL (3.5-5.0); BILIRUBIN,TOTAL 0.5 mg/dL (0.2-1.0); CREATININE 3.8 mg/dL (0.5-1.5); PHOSPHORUS 4.9 mg/dL (2.5-4.9); POTASSIUM 3.2 mmol/L (3.5-5.1); TOTAL PROTEIN, SERUM 6.2 g/dL (6.0-8.3)
[2018-12-22] MEDS: INSULIN HUMULIN R 100 UNIT/ML 3ML SQ SCH ×4 (06:05→20:49)
[2018-12-22 08:00] VITALS: BP 158/55
--- NOTE | 2018-12-22 08:20 | NUR ---
NOTE AAOX3. DENIES PAIN OR DISCOMFORT. SHE REPORTS SOME SOB WHEN SHE WOKE UP, REMINDED HER WHEN SHE CAME IN WITH "FLUID IN HER LUNGS" SHE HAS BEEN ON IVF SINCE SHE CAME IN AND HER BUD/CREA HAD BEEN ELEVATED. SHE IS BETTER ON HER LABS AND DR DUMONT, NEPHROLOGY IS IN THE CASE. SHE IS OBESE AND GETS UP WITH ASSISTANCE. NO PITTING EDEMA NOTED. VS STABLE AND NO OTHER PROBLEMS VOICED. APPEARS VERY COMFORTABLE WAITING FOR DR DUMONT TO DICTATE WHAT THE PLAN IS.
[2018-12-22] MEDS: CARVEDILOL 12.5 MG TABLET PO SCH ×2 (10:04→20:01)
[2018-12-22] MEDS: ASPIRIN 81 MG EC TAB PO SCH (10:04)
[2018-12-22] MEDS: DOXAZOSIN MESYLATE 2 MG TABLET PO SCH (10:04)
[2018-12-22] MEDS: AMLODIPINE BESYLATE 5 MG TAB PO SCH (10:04)
[2018-12-22] MEDS: PANTOPRAZOLE SODIUM 40 MG TABLET.DR PO SCH (10:04)
[2018-12-22] MEDS: HYDRALAZINE HCL 25 MG TABLET PO SCH ×3 (10:05→20:01)
[2018-12-22] MEDS: ISOSORBIDE MONO 60 MG TAB.SR PO SCH (10:05)
[2018-12-22] MEDS: FOLIC ACID 1 MG TABLET PO SCH (10:05)
[2018-12-22] MEDS: FERROUS SULFATE 325 MG TABLET.DR PO SCH (10:06)
[2018-12-22 11:00] VITALS: BP 157/65
--- NOTE | 2018-12-22 11:20 | NUR ---
PT UP AND WALKING IN HALLS WITH WALKER AND SPOUSE- STATES FEELS GREAT READY TO GO HOME, LOOKS WELL, NOT SOB, GOOD COLOR
[2018-12-22 16:12] VITALS: BP 152/60
[2018-12-22] MEDS: CEFTRIAXONE SODIUM 1 GM IVP SCH (19:35)
[2018-12-22 20:00] VITALS: BP 148/63
[2018-12-22] MEDS: **HM**Pravastatin Sodium 10 MG PO SCH (20:07)
[2018-12-22] MEDS ORDERED: FUROSEMIDE 10 MG/ML 2ML VIAL IV SCH (23:00)
[2018-12-23] VITALS: BP 157/71
[2018-12-23 04:00] VITALS: BP 147/88
[2018-12-23 04:57] LABS: HEMATOCRIT 24.7 % (36-48); MEAN CORPUSCULAR HEMOGLOBIN 27.6 pg (27.0-33.0); MEAN CORPUSCULAR HGB CONC 32.9 g/dL (32.0-36.0); MEAN CORPUSCULAR VOLUME 83.9 fL (79-99); PLATELET COUNT (AUTO) 196 K/uL (130-400); RED BLOOD CELL COUNT(AUTO) 2.95 MIL/uL (4.00-5.50); RED CELL DISTRIBUTION WIDTH 18.4 % (11.0-15.5); WHITE BLOOD COUNT (AUTO) 6.1 K/uL (4.8-10.8)
[2018-12-23 05:09] LABS: ALBUMIN 2.8 g/dL (3.5-5.0); BILIRUBIN,TOTAL 0.6 mg/dL (0.2-1.0); CREATININE 3.2 mg/dL (0.5-1.5); PHOSPHORUS 4.5 mg/dL (2.5-4.9); TOTAL PROTEIN, SERUM 6.6 g/dL (6.0-8.3)
[2018-12-23] MEDS: INSULIN HUMULIN R 100 UNIT/ML 3ML SQ SCH ×4 (06:41→21:02)
--- NOTE | 2018-12-23 07:40 | NUR ---
NOTE AAOX3. SITTING UP AT EDGE OF THE BED EATING BREAKFAST. DENIES ANY SOB OR PAIN. REPORTS SHE HAD SOME SOB LAST NIGHT BUT DR DUMONT MADE ROUNDS AND STOPPED IVF AND GAVE ONE DOSE LASIX. BBS CLEAR TO UPPER AND DIMINISHED TO LOWER. REPORTS FEELING A LOT BETTER TODAY. LAB WORK LOOKS BETTER, BUN AND CREATININE IMPROVED. FAMILY AT HER SIDE.
[2018-12-23 08:00] VITALS: BP 165/60
[2018-12-23] MEDS: FERROUS SULFATE 325 MG TABLET.DR PO SCH (08:00)
[2018-12-23] MEDS: DOXAZOSIN MESYLATE 2 MG TABLET PO SCH (10:08)
[2018-12-23] MEDS: ISOSORBIDE MONO 60 MG TAB.SR PO SCH (10:08)
[2018-12-23] MEDS: FOLIC ACID 1 MG TABLET PO SCH (10:09)
[2018-12-23] MEDS: HYDRALAZINE HCL 25 MG TABLET PO SCH ×3 (10:09→20:55)
[2018-12-23] MEDS: PANTOPRAZOLE SODIUM 40 MG TABLET.DR PO SCH (10:09)
[2018-12-23] MEDS: CARVEDILOL 12.5 MG TABLET PO SCH ×2 (10:10→20:54)
[2018-12-23] MEDS: ASPIRIN 81 MG EC TAB PO SCH (10:10)
[2018-12-23] MEDS: AMLODIPINE BESYLATE 5 MG TAB PO SCH (10:10)
--- NOTE | 2018-12-23 10:30 | NUR ---
NOTE PATIENT HAD O2 SATURATION IN THE HIGH 80'S WITH ROOM AIR. WAS PLACED BACK ON O2@2LNC. WILL CALL DR FLOWERS FOR SHE ALSO FELT A LITTLE MORE WINDED AFTER WALKING WITH P.T. EARLIER. IVF WERE STOPPED BY DR DUMONT LAST NIGHT AND WAS GIVEN ONE DOSE OF LASIX. DOES NOT APPEAR TO BE IN DISTRESS WHILE AT REST.
[2018-12-23] MEDS ORDERED: FUROSEMIDE 10 MG/ML 4ML VIAL IV SCH (11:45)
[2018-12-23 12:00] VITALS: BP 145/71
[2018-12-23 12:01] LABS: ABG BASE EXCESS -4.3 mmol/L (-2.0-3.0); ABG HCO3 19.4 mmol/L (21.0-28.0); ABG OXYGEN SATURATION 80.9 % (95.0-99.0); ABG PCO2 32 mmHg (32-45)
--- NOTE | 2018-12-23 15:23 | NUR ---
RD NOTIFICATION DX: ACUTE ON CHRONIC RENAL FAILURE. HX: DM, HTN, HYPERLIPIDEMIA. DIET: 75GMCCD, 2GM Na. PO INTAKE 50% AND HAS STEADY APPETITE PER PT. PT HAVING ABDOMINAL PAIN AND FEELS VERY FULL AFTER MEALS. LBM: 12/23. RD RECOMMENDS CHANGE DIET TO LOW FAT, RENAL NON-DIALYSIS. OFFER ENSURE CLEAR. RD WILL MONITOR AND FOLLOW UP NEEDED. ABIODUN GALEVZ MS, RDN Addendum: 12/23/18 at [address] RD Amended: Links added.
[2018-12-23 16:00] VITALS: BP 139/58
[2018-12-23 20:00] VITALS: BP 137/52
[2018-12-23] MEDS: CEFTRIAXONE SODIUM 1 GM IVP SCH (20:55)
[2018-12-23] MEDS: **HM**Pravastatin Sodium 10 MG PO SCH (21:00)
[2018-12-23] MEDS ORDERED: POTASSIUM CHLORIDE 20 MEQ ERTAB PO SCH (21:30)
[2018-12-24] VITALS: BP 145/56
[2018-12-24 04:00] VITALS: BP 154/55
[2018-12-24 06:24] LABS: BASOPHILS % (AUTO) 0.4 % (0.0-5.0); EOSINOPHILS % (AUTO) 3.9 % (0.0-8.0); HEMATOCRIT 26.4 % (36-48); LYMPHOCYTES % (AUTO) 14.8 % (21.0-51.0); MEAN CORPUSCULAR HEMOGLOBIN 28.3 pg (27.0-33.0); MEAN CORPUSCULAR HGB CONC 33.3 g/dL (32.0-36.0); MEAN CORPUSCULAR VOLUME 85.2 fL (79-99); MONOCYTES % (AUTO) 8.1 % (3.0-13.0); NEUTROPHILS % (AUTO) 72.8 % (40.0-77.0); NUCLEATED RED BLOOD CELLS 0.1 % (0.0-0.19); PLATELET COUNT (AUTO) 187 K/uL (130-400); RED CELL DISTRIBUTION WIDTH 18.2 % (11.0-15.5); WHITE BLOOD COUNT (AUTO) 6.3 K/uL (4.8-10.8)
[2018-12-24 06:41] LABS: BILIRUBIN,TOTAL 0.8 mg/dL (0.2-1.0); CREATININE 3.1 mg/dL (0.5-1.5); TOTAL PROTEIN, SERUM 7.3 g/dL (6.0-8.3)
[2018-12-24] MEDS: INSULIN HUMULIN R 100 UNIT/ML 3ML SQ SCH ×4 (07:03→20:23)
[2018-12-24 08:00] VITALS: BP 169/56
[2018-12-24] MEDS: DOXAZOSIN MESYLATE 2 MG TABLET PO SCH (10:12)
[2018-12-24] MEDS: ISOSORBIDE MONO 60 MG TAB.SR PO SCH (10:12)
[2018-12-24] MEDS: AMLODIPINE BESYLATE 5 MG TAB PO SCH (10:12)
[2018-12-24] MEDS: CARVEDILOL 12.5 MG TABLET PO SCH ×2 (10:13→20:15)
[2018-12-24] MEDS: FOLIC ACID 1 MG TABLET PO SCH (10:13)
[2018-12-24] MEDS: ASPIRIN 81 MG EC TAB PO SCH (10:13)
[2018-12-24] MEDS: HYDRALAZINE HCL 25 MG TABLET PO SCH ×3 (10:13→20:15)
[2018-12-24] MEDS: PANTOPRAZOLE SODIUM 40 MG TABLET.DR PO SCH (10:13)
[2018-12-24] MEDS: FERROUS SULFATE 325 MG TABLET.DR PO SCH (10:14)
[2018-12-24 11:00] VITALS: BP 153/72
[2018-12-24] MEDS: POTASSIUM BICARB/CIT AC 25 MEQ TABLET.EFF PO SCH (11:34)
[2018-12-24] MEDS: FUROSEMIDE 10 MG/ML 4ML VIAL IV SCH ×2 (11:34→22:46)
[2018-12-24 16:00] VITALS: BP 143/98
[2018-12-24 19:47] VITALS: BP 159/63
[2018-12-24] MEDS: CEFTRIAXONE SODIUM 1 GM IVP SCH (20:15)
[2018-12-24] MEDS: **HM**Pravastatin Sodium 10 MG PO SCH (20:24)
[2018-12-25] VITALS (7 sets, daily range): BP systolic 129–151; BP diastolic 52–76
[2018-12-25] MEDS: INSULIN HUMULIN R 100 UNIT/ML 3ML SQ SCH ×4 (05:44→20:33)
[2018-12-25 06:03] LABS: ALBUMIN 2.7 g/dL (3.5-5.0); CREATININE 2.9 mg/dL (0.5-1.5); PHOSPHORUS 3.1 mg/dL (2.5-4.9); POTASSIUM 3.1 mmol/L (3.5-5.1)
[2018-12-25] MEDS: ASPIRIN 81 MG EC TAB PO SCH (07:57)
[2018-12-25] MEDS: DOXAZOSIN MESYLATE 2 MG TABLET PO SCH (07:57)
[2018-12-25] MEDS: FERROUS SULFATE 325 MG TABLET.DR PO SCH (07:58)
[2018-12-25] MEDS: ISOSORBIDE MONO 60 MG TAB.SR PO SCH (07:58)
[2018-12-25] MEDS: AMLODIPINE BESYLATE 5 MG TAB PO SCH (07:58)
[2018-12-25] MEDS: CARVEDILOL 12.5 MG TABLET PO SCH ×2 (07:58→19:59)
[2018-12-25] MEDS: PANTOPRAZOLE SODIUM 40 MG TABLET.DR PO SCH (07:58)
[2018-12-25] MEDS: FOLIC ACID 1 MG TABLET PO SCH (07:58)
[2018-12-25] MEDS: HYDRALAZINE HCL 25 MG TABLET PO SCH ×3 (08:00→20:00)
[2018-12-25] MEDS: POTASSIUM BICARB/CIT AC 25 MEQ TABLET.EFF PO SCH ×2 (09:29→11:00)
[2018-12-25] MEDS: FUROSEMIDE 10 MG/ML 4ML VIAL IV SCH ×2 (11:44→22:24)
--- NOTE | 2018-12-25 19:58 | NUR ---
MEDS SHIFT ASSESSMENT DONE, PLEASE REFER TO CHART. PT ABLE TO WALK TO THE RESTROOM THEN BACK TO BED BY HERSELF WITHOUT ANY ASSIST. NOTED TO HAVE SOB WITH EXERTION. DUE MEDS ADMINISTERED, TOLERATED WELL. KEPT RESTED AND COMFORTABLE. CALL LIGHT WITHIN REACH. PT'S SPOUSE AT BEDSIDE. Addendum: 12/26/18 at 0001 by DAVID SWARTZ RN RN Amended: Links added.
[2018-12-25] MEDS: CEFTRIAXONE SODIUM 1 GM IVP SCH (19:59)
[2018-12-25] MEDS: **HM**Pravastatin Sodium 10 MG PO SCH (20:00)
--- NOTE | 2018-12-25 21:40 | NUR ---
MD DR DUMONT IN TO SEE PT. NEW ORDERS GIVEN, PLEASE REFER TO CPOE.
--- NOTE | 2018-12-26 01:45 | NUR ---
ROUNDS PT RESTING WELL, FAIRLY ASLEEP WITH RESPIRATIONS EVEN AND UNLABORED ON O2 AT 2LPM VIA NC. KEPT UNDISTURBED FOR NOW. WILL MONITOR PT. CALL LIGHT WITHIN REACH. SPOUSE ASLEEP AT BEDSIDE.
[2018-12-26 04:06] VITALS: BP 131/47
--- NOTE | 2018-12-26 05:27 | NUR ---
ROUNDS PT RESTING WELL, NO DISTRESS NOTED. KEPT RESTED AND COMFORTABLE. FOR MORE CARE.
[2018-12-26 05:32] LABS: ALBUMIN 2.8 g/dL (3.5-5.0); CREATININE 2.8 mg/dL (0.5-1.5); PHOSPHORUS 2.9 mg/dL (2.5-4.9); POTASSIUM 3.3 mmol/L (3.5-5.1)
[2018-12-26] MEDS: INSULIN HUMULIN R 100 UNIT/ML 3ML SQ SCH ×3 (05:54→20:21)
--- NOTE | 2018-12-26 07:34 | NUR ---
O2 extension, enforced pt safety Addendum: 12/26/18 at 0735 by ELIDA JOSEPH RT Amended: Links added.
[2018-12-26 07:51] VITALS: BP 161/68
[2018-12-26] MEDS ORDERED: BUMETANIDE 1 MG TAB PO SCH (09:00)
[2018-12-26] MEDS ORDERED: FUROSEMIDE 40 MG TABLET PO SCH (09:00)
[2018-12-26] MEDS: FERROUS SULFATE 325 MG TABLET.DR PO SCH (09:04)
[2018-12-26] MEDS: DOXAZOSIN MESYLATE 2 MG TABLET PO SCH (09:04)
[2018-12-26] MEDS: PANTOPRAZOLE SODIUM 40 MG TABLET.DR PO SCH (09:04)
[2018-12-26] MEDS: FOLIC ACID 1 MG TABLET PO SCH (09:04)
[2018-12-26] MEDS: ASPIRIN 81 MG EC TAB PO SCH (09:05)
[2018-12-26] MEDS: CARVEDILOL 12.5 MG TABLET PO SCH ×2 (09:05→19:48)
[2018-12-26] MEDS: AMLODIPINE BESYLATE 5 MG TAB PO SCH (09:05)
[2018-12-26] MEDS: HYDRALAZINE HCL 25 MG TABLET PO SCH ×3 (09:05→19:49)
[2018-12-26] MEDS: POTASSIUM BICARB/CIT AC 25 MEQ TABLET.EFF PO SCH ×2 (09:06→10:54)
[2018-12-26] MEDS: ISOSORBIDE MONO 60 MG TAB.SR PO SCH (09:06)
--- NOTE | 2018-12-26 09:20 | NUR ---
DR FLOWERS ROUNDED ON PATIENT AND PER HIS SERVICE MAY BE DISCHARGE IF OK WITH DR DUMONT
[2018-12-26 11:00] VITALS: BP 152/61
--- NOTE | 2018-12-26 11:01 | NUR ---
DR DUMONT IN TODAY LABS ORDERED FOR AM, RENAL PANEL AND CHEST XRAY TODAY, D/C LASIX AND START BUNEX 2 MG DAILY
--- NOTE | 2018-12-26 12:25 | NUR ---
CM Note: O2 script pending Dr Harris to sign CM met with primary nurse Sharon, made aware flagged script for Dr Harris to sign. Will arrange once script signed. Called [facility] spoke to Leonie, given heads up, received facesheet and clinicals, will wait for signed script to be faxed. CM to cont to follow up. Pt pending O2 approval and delivery.
--- NOTE | 2018-12-26 16:24 | NUR ---
CM Note: O2 pending Dr Harris to sign script CM met with pt qualified for home O2 eval, agreeable, FIDELIA signed for any in network DME. Pt currently pending script to be signed by Dr Harris. Primary nurse aware. Flagged in chart. Pending to be set up. CM to cont to follow up.
[2018-12-26 16:49] VITALS: BP 151/57
--- NOTE | 2018-12-26 16:49 | NUR ---
RD NOTIFICATION/ FOLLOW UP Diet: Renal Non-Dialysis, 75gmCCD, Low fat. LBM: 12/25, noted. Skin: 2+ pitting edema, skin intact. Pt in the shower during time of visit. RD will follow up tomorrow to provide nutrition education. RD recommends continue current diet. RD will follow up tomorrow to provide nutrition education materials. Thank you. Addendum: 12/26/18 at [address] Amended: Links added.
[2018-12-26 19:38] VITALS: BP 142/56
[2018-12-26] MEDS: CEFTRIAXONE SODIUM 1 GM IVP SCH (19:48)
[2018-12-26] MEDS: **HM**Pravastatin Sodium 10 MG PO SCH (19:49)
--- NOTE | 2018-12-26 19:49 | NUR ---
MEDS SHIFT ASSESSMENT DONE, PLEASE REFER TO CHART. DUE MEDS ADMINISTERED, TOLERATED WELL. KEPT RESTED AND COMFORTABLE. CALL LIGHT WITHIN REACH. WILL MONITOR PT. SPOUSE AT BEDSIDE. Addendum: 12/26/18 at 2134 by DAVID SWARTZ RN RN Amended: Links added.
--- NOTE | 2018-12-26 21:15 | NUR ---
RT SPOKE WITH RT PATRICIA, ABOUT POSSIBLE NEED FOR RE-EVAL FOR HOME O2 ON PT SINCE SHE WAS NOT D/C TODAY. RT STATED HE WILL MAKE A NOTE FOR RT IN AM TO FOLLOW UP.
--- NOTE | 2018-12-26 22:00 | NUR ---
ROUNDS PT RESTING WELL, FAIRLY ASLEEP WITH RESPIRATIONS EVEN AND UNLABORED. NO NOTED DISTRESS. KEPT UNDISTURBED FOR NOW. WILL MONITOR PT.
[2018-12-26 23:30] VITALS: BP 136/52
--- NOTE | 2018-12-27 01:54 | NUR ---
ROUNDS PT FAIRLY ASLEEP WITH RESPIRATIONS EVEN AND UNLABORED. NO DISTRESS NOTED. KEPT UNDISTURBED FOR NOW. WILL MONITOR PT.
[2018-12-27 04:00] VITALS: BP 147/55
[2018-12-27] MEDS: INSULIN HUMULIN R 100 UNIT/ML 3ML SQ SCH ×3 (06:04→16:30)
[2018-12-27 06:09] LABS: ALBUMIN 2.8 g/dL (3.5-5.0); CREATININE 2.7 mg/dL (0.5-1.5); PHOSPHORUS 3.2 mg/dL (2.5-4.9); POTASSIUM 3.8 mmol/L (3.5-5.1)
--- NOTE | 2018-12-27 06:20 | NUR ---
ROUNDS PT RESTING WELL. NO DISTRESS NOTED. NO CONCERNS VERBALIZED. KEPT RESTED. FOR MORE CARE.
[2018-12-27 08:16] VITALS: BP 149/56
[2018-12-27] MEDS: HYDRALAZINE HCL 25 MG TABLET PO SCH ×2 (08:53→14:00)
[2018-12-27] MEDS: DOXAZOSIN MESYLATE 2 MG TABLET PO SCH (08:53)
[2018-12-27] MEDS: POTASSIUM BICARB/CIT AC 25 MEQ TABLET.EFF PO SCH ×2 (08:53→10:34)
[2018-12-27] MEDS: FERROUS SULFATE 325 MG TABLET.DR PO SCH (08:54)
[2018-12-27] MEDS: ISOSORBIDE MONO 60 MG TAB.SR PO SCH (08:54)
[2018-12-27] MEDS: PANTOPRAZOLE SODIUM 40 MG TABLET.DR PO SCH (08:54)
[2018-12-27] MEDS: AMLODIPINE BESYLATE 5 MG TAB PO SCH (08:54)
[2018-12-27] MEDS: CARVEDILOL 12.5 MG TABLET PO SCH (08:54)
[2018-12-27] MEDS: FOLIC ACID 1 MG TABLET PO SCH (08:54)
[2018-12-27] MEDS: ASPIRIN 81 MG EC TAB PO SCH (08:54)
[2018-12-27] MEDS ORDERED: BUMETANIDE 1 MG TAB PO SCH (09:00)
[2018-12-27 10:59] VITALS: BP 144/58
--- NOTE | 2018-12-27 12:22 | NUR ---
CM Note: [facility] CM spoke to Leonie w/[facility], received clinicals and order, currently working on approval and delivery. Aware Dr Harris pending to cosign script, will fax once available. Pt pending approval and delivery of Oxygen portable and stationary. Primary nurse aware. CM to cont to follow up.
--- NOTE | 2018-12-27 13:57 | NUR ---
CM Note: [facility] approval, pending delivery CM spoke to Leonie w/[facility], pt has approval, states ETA for portable O2 3-4hrs today. Primary nurse aware. Pt updated w/POC. Pt safe to dc home once MD cleared after O2 portable is delivered. CM to cont to follow up.
[2018-12-27 16:40] VITALS: BP 148/57
--- NOTE | 2018-12-27 16:42 | NUR ---
RD NOTIFICATION/ FOLLOW UP Diet: Renal non-dialysis, 75gmCCD, low fat. D/C Planning today. Recommend continue current diet. RD follow-up due to pending nutrition education. RD provided renal-non dialysis, low fat, and fluid restriction diet and nutrition education in [place]. Family asked questions, RD answered and pt verbalized understanding. Education materials provided. RD will follow up as needed. Thank you. Maday Trivedi MS, RDN Addendum: 12/27/18 at [address] RD Amended: Links added.
--- NOTE | 2018-12-27 16:44 | NUR ---
DIET EDUCATION RD provided renal-non dialysis, low fat, and fluid restriction diet and nutrition education in [place]. Family asked questions, RD answered and pt verbalized understanding. Education materials provided. Addendum: 12/27/18 at [address] RD Amended: Links added.
== END 2018-12-27 17:52 | disposition home or self-care (01) | DRG 682 ==
LOC: EDH 22:49 → EDHIP 12-18 01:17 → OBSVTOIN 12-18 01:17 → 4CH 12-18 02:06
PROVIDERS: ADMIT Family Medicine; ATTEND Family Medicine
DX: N17.0 Acute kidney failure with tubular necrosis (principal); I50.31 Acute diastolic (congestive) heart failure; E87.2 Acidosis; N39.0 Urinary tract infection, site not specified; I13.2 Hypertensive heart and chronic kidney disease with heart failure and with stage 5 chronic kidney disease, or end stage renal disease; N18.5 Chronic kidney disease, stage 5; E11.21 Type 2 diabetes mellitus with diabetic nephropathy; D64.9 Anemia, unspecified; E11.22 Type 2 diabetes mellitus with diabetic chronic kidney disease; E11.42 Type 2 diabetes mellitus with diabetic polyneuropathy; E66.01 Morbid (severe) obesity due to excess calories; E78.5 Hyperlipidemia, unspecified; E87.6 Hypokalemia; E21.3 Hyperparathyroidism, unspecified; E55.9 Vitamin D deficiency, unspecified; E87.8 Other disorders of electrolyte and fluid balance, not elsewhere classified; Z68.39 Body mass index [BMI] 39.0-39.9, adult; Z79.4 Long term (current) use of insulin; Z23 Encounter for immunization
CPT/HCPCS: 36415; 36600; 71045; 80048; 80053; 80069; 80076; 81001; 82550; 82803; 82948; 83605; 83690; 83880; 84100; 84484; 85025; 85027; 87040; 87088; 87804; 93005; 94760; 97039; G0378; J0696; J1815; J1940; J3490; J7030

== ENCOUNTER → 2022-06-11 | Outpatient (CLI) | payer OTHER ==
[~2022-06-11] MED LIST changes: +AMLO-258 PO; -AMLO10TA7 PO; -ASPI-1181 PO; +ASPI-1443 PO; +FERR325T22 PO; +FOLI1 PO; +FURO20TA4 PO; -FURO20TA6 PO; -ISOS60TA4 PO; +ISOS60TA77 PO
== END | disposition home or self-care (01) ==
LOC: LAB 15:00
PROVIDERS: ATTEND Internal Medicine Cardiovascular Disease
DX: I20.9 Angina pectoris, unspecified (principal)
CPT/HCPCS: 84484

== ENCOUNTER → 2022-08-20 | Outpatient (CLI) | payer OTHER, MEDICARE | END | disposition home or self-care (01) | LOC: SHCH 08:09 | PROVIDERS: ATTEND Internal Medicine Cardiovascular Disease | DX: I08.8 Other rheumatic multiple valve diseases (principal); I11.9 Hypertensive heart disease without heart failure; I20.9 Angina pectoris, unspecified; E11.9 Type 2 diabetes mellitus without complications; E78.5 Hyperlipidemia, unspecified | CPT/HCPCS: 93306 ==

== ENCOUNTER 2023-09-01 18:02 | Emergency (ER) | payer OTHER, MEDICARE ==
[~2023-09-01] VITALS: Ht 152.4 cm; Wt 66.7 kg
[~2023-09-01 18:02] MED LIST changes: +AMIO200T68 PO; -AMLO-258 PO; +ATOR20TA65 PO; +CALC667C10 PO; -DOXA2TAB2 PO; -FURO20TA4 PO; -HYDR-4154 PO; +HYDR50TA37 PO; +ISOS30TA92 PO; -ISOS60TA77 PO; +LORA10TA7 PO; +MECL-302 PO; -PRAV10TA39 PO
[2023-09-01] MEDS ORDERED: CACL 1GM SYG IVP ONE (18:03)
[2023-09-01] MEDS ORDERED: ROCURONIUM BROMIDE 10MG/1ML 5ML VL IV ONE (18:03)
[2023-09-01] MEDS ORDERED: NOREPINEPHRIN 4MG/NS 250ML 250 ML IV ONE (18:14)
[2023-09-01 18:27] LABS: IMMATURE GRANULOCYTE ABSOLUTE 0.23 K/uL (0-1); LYMPHOCYTES # (AUTO) 0.1 K/uL (1.0-4.8); LYMPHOCYTES % (AUTO) 2.8 % (21.0-51.0); MEAN CORPUSCULAR HEMOGLOBIN 32.8 pg (27.0-33.0); MEAN CORPUSCULAR HGB CONC 31.9 g/dL (32.0-36.0); MEAN CORPUSCULAR VOLUME 103.1 fL (79-99); MONOCYTES % (AUTO) 1.2 % (3.0-13.0); NEUTROPHILS # (AUTO) 2.2 K/uL (1.8-7.7); NEUTROPHILS % (AUTO) 86.7 % (40.0-77.0); NUCLEATED RED BLOOD CELLS 1.6 % (0.0-0.19); PLATELET COUNT (AUTO) 48 K/uL (130-400); RED BLOOD CELL COUNT(AUTO) 1.31 MIL/uL (4.00-5.50); RED CELL DISTRIBUTION WIDTH 14.7 % (11.0-15.5); WHITE BLOOD COUNT (AUTO) 2.5 K/uL (4.8-10.8)
[2023-09-01 18:29] LABS: ABG BASE EXCESS -1.3 mmol/L (-2.0-3.0); ABG OXYGEN SATURATION 96.3 % (95.0-99.0); ABG PCO2 21 mmHg (32-45); ABG PH 7.569 (7.35-7.450); HHb 3.7; VENT MODE, BG 2L NC (ROOM AIR)
[2023-09-01 18:30] VITALS: BP 83/58; RESP 18
[2023-09-01 18:33] LABS: HEMATOCRIT 13.5 % (36-48)
[2023-09-01 18:53] LABS: BAND NEUTROPHILS % (MANUAL) 4 % (0-2); LYMPHOCYTES % (MANUAL) 11 % (22-44); MONOCYTES % (MANUAL) 4 % (2-9); SEGMENTED NEUTROPHILS % 81 % (40-70); TOTAL CELLS COUNTED 100
[2023-09-01 18:54] LABS: MAN.DIFF COMMENT-IMPRESSION MANUAL DIFFERENTIAL; WBC MORPHOLOGY CONSISTENT W/DIFF
[2023-09-01 18:57] LABS: AMMONIA < 10 umol/L (11-32); CARBON DIOXIDE 12 mmol/L (21-32); CREATINE KINASE, TOTAL 17 U/L (21-232); CREATININE 0.8 mg/dL (0.5-1.0); GLOMERULAR FILTR. RATE CALC 77 mL/min (>90); SODIUM SERUM 151 mmol/L (136-145); UREA NITROGEN, BLOOD 5 mg/dL (7-18)
[2023-09-01] MEDS ORDERED: NOREPINEPHRIN 4MG/NS 250ML 250 ML IV SCH (19:00)
[2023-09-01] MEDS: ATROPINE 1MG SYG IVP SCH (19:00)
[2023-09-01 19:05] VITALS: PULSE 82; O2SAT 99
[2023-09-01 19:13] LABS: POTASSIUM < 1.4 mmol/L (3.5-5.1)
[2023-09-01 19:14] LABS: CHLORIDE 124 mmol/L (101-111); GLUCOSE,RANDOM 41 mg/dL (70-105)
[2023-09-01] MEDS: DEXTROSE 50%-WATER 50 ML DISP.SYRIN IV ONE ×2 (19:23→19:32)
[2023-09-01] MEDS: 0.9%NACL 1000ML 1,000 ML IV ONE (19:23)
[2023-09-01] MEDS: ATROPINE 1MG SYG IVP ONE (19:24)
[2023-09-01] MEDS ORDERED: CALCIUM GLUC 1GM/10ML VIAL IV STA (19:24)
[2023-09-01] MEDS ORDERED: POTASSIUM CHLORIDE 10MEQ/100ML 100 ML IV ONE (19:30)
[2023-09-01] MEDS: ETOMIDATE 20MG VIAL IVP ONE (19:31)
[2023-09-01] MEDS ORDERED: POTASSIUM CHLORIDE 20MEQ/100ML 100 ML IV ONE (19:48)
[2023-09-01 19:58] VITALS: PULSE 61; O2SAT 98
[2023-09-01] MEDS: ROCURONIUM BROMIDE 10MG/1ML 5ML VL IV SCH (20:05)
== END 2023-09-01 20:30 ==
LOC: EDH 18:02
DX: I46.9 Cardiac arrest, cause unspecified (principal); E78.00 Pure hypercholesterolemia, unspecified; E11.22 Type 2 diabetes mellitus with diabetic chronic kidney disease; I12.0 Hypertensive chronic kidney disease with stage 5 chronic kidney disease or end stage renal disease; N18.6 End stage renal disease; Z99.2 Dependence on renal dialysis; Z79.899 Other long term (current) drug therapy; Z79.82 Long term (current) use of aspirin
CPT/HCPCS: 99285; 82435; 82550; 82947; 84484; 84132; 84295; 80048; 82803; 82140; 85025; 85018; 86850; 86900; 86922; 86901; 86945; 82948 ×3; 83605 ×2; 36415; 71045; 70450; 96374; 36430; 96361; 93005; 92950 ×2; 31500; 36600; 84145; P9016 ×3; J3490 ×4; J7070 ×2; J0171; J0461; J3480; A9900; 51702; 94002